=== PATIENT | female | born 1975 | race Caucasian/White ===

== ENCOUNTER 2019-04-18 13:36 | Emergency (ER) | payer SELFPAY ==
[~2019-04-18] VITALS: Ht 154.9 cm; Wt 56.7 kg
--- NOTE | ~2019-04-18 | EKG ---
[place], [place] ELECTROCARDIOGRAM REPORT NAME: JAIMIE HOGAN UNIT #: [id number] ROOM: DOCTOR: EPIPHANY DRAFT REPORT BIRTHDATE: [birth year] [facility] Test Date: 2019-04-18 Test Time: 14:06:24 Pat Name: JAIMIE HOGAN Department: Room: Gender: F Mental Health Worker: : 1975 Requested By: HOLLIS WILLINGHAM Order Number: [id number] Reading MD: Jourdan Bella MD Measurements Intervals [place] Rate: 64 P: 59 ME: 148 QRS: 26 QRSD: 100 T: 36 QT: 430 QTc: 444 Interpretive Statements Sinus rhythm RSR' in V1 or V2, right VCD or RVH Baseline wander in lead(s) V2 Electronically Signed On 04-19-2019 9:37:22 PDT by Jourdan Bella MD CM:[email or web address]:ELECTROCARDIOGRAM REPORT [id number] HOLLIS LAMBERT DRAFT REPORT HOLLIS WILLINGHAM MD
[~2019-04-18 13:36] MED LIST: 'PARAFON FORTE500 M1 PO; BACTRIM DS 8001 TA1 PO; DOC-Q-LACE100 MG PO; DOXYCYCLINE100 M3 PO; HYDROCODONE BIT1 T11 PO; IMURAN50 MG PO; LOMOTIL 0.025 M1 TAB PO; NKHM; PENTASA500 MG PO; PREDNISONE10 MG PO; UCERIS9 MG PO; Zofran4 MG PO
[2019-04-18 14:12] LABS: BASO # 0.1 10*3/uL (0.0-0.1); EOS # 0.2 10*3/uL (0.0-0.4); EOS % 2.2 % (1.0-4.0); HEMATOCRIT 30.6 % (37.0-47.0); HEMOGLOBIN 8.7 g/dl (12.0-16.0); LYMPH # 1.5 10*3/uL (1.3-4.4); LYMPH % 21.8 % (27.0-41.0); MEAN CELL VOLUME 75.6 fl (81.0-99.0); MEAN CORPUSCULAR HGB 21.5 pg (27.0-31.0); MEAN CORPUSCULAR HGB CONC 28.4 g/dl (33.0-37.0); MONO # 0.4 10*3/uL (0.1-1.0); MONO % 5.8 % (3.0-9.0); NEUT # 4.7 10*3/uL (2.3-7.9); NEUT % 68.9 % (47.0-73.0); PLATELET COUNT AUTOMATED 372 10*3/uL (130-400); RED BLOOD COUNT 4.05 10*6/uL (4.10-5.10); RED CELL DISTRI WIDTH 16.5 % (0-14.5); WHITE BLOOD COUNT 6.9 10*3/uL (4.8-10.8)
[2019-04-18 14:25] LABS: ACT PARTIAL THROMBO TIME 24.1 SECONDS (20.0-32.1)
[2019-04-18 14:28] LABS: ALBUMIN 3.3 gm/dl (3.1-4.5); ALKALINE PHOSPHATASE 68 U/L (45-117); BUN 7 mg/dl (7-24); CHLORIDE 108 mmol/L (98-107); CREATININE 0.84 mg/dL (0.55-1.02); POTASSIUM 3.6 mmol/L (3.5-5.1); SGOT/AST 8 IU/L (3-35); SGPT/ALT 10 U/L (12-78); SODIUM 141 mmol/L (136-145); TOTAL PROTEIN 6.7 gm/dL (6.4-8.2)
[2019-04-18 14:39] LABS: RETICULOCYTE % 1.33 % (0.50-2.50)
[2019-04-18 14:50] LABS: IRON 13 ug/dL (50-170); TOTAL IRON BINDING CAPACITY 373 ug/dl (250-450)
[2019-04-18] MEDS ORDERED: IRON325 M1 PO (16:03)
[2019-04-18] MEDS ORDERED: MIRALAX POWDER17 G1 PO (16:18)
[2019-04-20 05:07] LABS: RBC, FOLATE HEMATOCRIT 30.9 % (34.0-46.6)
== END 2019-04-18 16:09 | disposition home or self-care (01) ==
LOC: ED 13:36
PROVIDERS: Emergency Medicine
DX: D50.8 Other iron deficiency anemias (principal); H91.8X1 Other specified hearing loss, right ear; R20.2 Paresthesia of skin; F17.200 Nicotine dependence, unspecified, uncomplicated; Z90.49 Acquired absence of other specified parts of digestive tract